=== PATIENT | male | born 1980 | race Hispanic/Latino ===

== ENCOUNTER 2019-10-09 20:11 | Inpatient (IN) | payer SELFPAY ==
[~2019-10-09] VITALS: Ht 188 cm; Wt 106.6 kg
[2019-10-09] MEDS ORDERED: TETANUS/DIPHTHERIA TOXOID [ADULT] 0.5 ML VIAL IM ONE (20:41)
[2019-10-09] MEDS ORDERED: CLINDAMYCIN 600 MG/D5% WATER 50 ML IV ONE (20:52)
[2019-10-09] MEDS ORDERED: KETOROLAC TROMETHAMINE 30MG/ML ONE (20:52)
[2019-10-09 21:10] LABS: BASOPHILS % (AUTO) 1.1 % (0.0-5.0); EOSINOPHILS % (AUTO) 2.8 % (0.0-8.0); HEMATOCRIT 44.6 % (42-54); LYMPHOCYTES % (AUTO) 25.2 % (21.0-51.0); MEAN CORPUSCULAR HGB CONC 33.5 g/dL (32.0-36.0); MEAN CORPUSCULAR VOLUME 86.7 fL (79-99); MONOCYTES % (AUTO) 7.6 % (3.0-13.0); NEUTROPHILS % (AUTO) 63.3 % (40.0-77.0); PLATELET COUNT (AUTO) 133 K/uL (130-400); RED BLOOD CELL COUNT(AUTO) 5.15 MIL/uL (4.50-6.20); RED CELL DISTRIBUTION WIDTH 12.9 % (11.0-15.5); WHITE BLOOD COUNT (AUTO) 8.4 K/uL (4.8-10.8)
[2019-10-09 21:21] LABS: INR 0.93 (0.85-1.15); PARTIAL THROMBOPLASTIN TIME 27.3 SEC (26.3-35.5); PROTHROMBIN TIME 9.8 SEC (9.6-11.6)
[2019-10-09 21:24] LABS: BILIRUBIN,TOTAL 0.4 mg/dL (0.2-1.0); TOTAL PROTEIN, SERUM 7.9 g/dL (6.0-8.3)
[2019-10-09] MEDS ORDERED: ONDANSETRON HCL 4 MG/2 ML VIAL ONE (21:57)
[2019-10-09] MEDS ORDERED: MORPHINE SULFATE 4 MG/1ML SYG ONE (21:57)
--- NOTE | 2019-10-09 22:35 | NUR ---
Admission note: Admitted to floor via wheelchair. AOX4. Amb indep. Placed in bed comfortably. VS checked and recorded. Assessment done. ( see CPOE flow chart for full assessment) Oriented to room and used of call light. Policies and procedures explained. Verbalized understanding. Plan of care initiated. Photo of the wound taken and attached to chart. Denies feeling of discomfort this time. No apparent distress noted. Monitored and Cared for.
--- NOTE | 2019-10-09 23:20 | NUR ---
Called Dr. Duarte for further order: 1. Ancef 1 gm IV q8h 2. Morphine 2 mg IV q1 hr prn for moderate pain 3. Tylenol #3 2 tabs q 4-6 hrs prn for moderate pain 4. Regular diet 5. NPO at 2am 6. I and D to Right middle finger at 12 noon fish processing supervisor Ms. PICKERING made aware.
[2019-10-09] MEDS ORDERED: ACETAMINOPHEN-CODEINE 300/30MG TAB PO PRN ×2 (23:30)
[2019-10-10] VITALS (28 sets, daily range): BP systolic 108–144; BP diastolic 55–90
[2019-10-10] MEDS: CEFAZOLIN SODIUM 1 GM VIAL IVP SCH ×3 (00:46→16:41)
[2019-10-10] MEDS: MORPHINE SULFATE 2 MG/ML 1ML SYG IVP PRN ×2 (07:07→12:28)
[2019-10-10] MEDS ORDERED: FLU VACC QS2019-20 36MOS UP/PF 60 MCG/0.5 ML ML IM ONE (09:00)
[2019-10-10] MEDS: FLU VACC QUAD 2019-20(6MOS UP) 60 MCG/0.5 ML VIAL IM SCH (10:00)
[2019-10-10] MEDS ORDERED: SUCCINYLCHOLINE 200MG/10ML SYR ONE (12:01)
[2019-10-10] MEDS ORDERED: LIDOCAINE PF 2% 5ML ABBOJECT ONE (12:01)
[2019-10-10] MEDS ORDERED: MIDAZOLAM HCL 1 MG/ML 2ML VIAL ONE (12:02)
[2019-10-10] MEDS ORDERED: PROPOFOL 10 MG/ML 20ML VIAL IV ONE ×2 (12:03→12:11)
[2019-10-10] MEDS ORDERED: ROCURONIUM 10MG/1ML SYR 10 MG/ML ML ONE (12:03)
[2019-10-10] MEDS ORDERED: FENTANYL CITRATE PF 50 MCG/1 ML 2ML VIAL ONE (12:04)
[2019-10-10] MEDS ORDERED: CEFAZOLIN SODIUM 1 GM VIAL IRRIG ONE (12:30)
[2019-10-10] MEDS ORDERED: MEPERIDINE-PF 25 MG/ML SYG ONE ×3 (12:50→13:01)
[2019-10-10] MEDS ORDERED: KETOROLAC TROMETHAMINE 30MG/ML ONE (12:52)
--- NOTE | 2019-10-10 16:28 | NUR ---
D/C PLAN CM spoke to pt regarding d/c planning. Pt is [place] and lives with spouse. Denies having any DME at home. States spouse can assist in care and also with dressing changes as needed. CM provided community resources packet. Plan to home. No needs verbalized or identified. CM to f/u. Addendum: 10/10/19 at 1629 by STEPHANIE JAMES CM Amended: Links added.
[2019-10-10] MEDS ORDERED: ONDANSETRON HCL 4 MG/2 ML VIAL IVP PRN (19:00)
--- NOTE | 2019-10-10 21:32 | NUR ---
HEARTBURN Called Dr. Duarte informing pt was complaining of heartburn. Informed also that pt is taking Zantac as needed for heartburn. Ordered to call pharmacy and follow their protocol. 2132: Talked to pharmacist ( Mr. Hazel) thru phone. As per protocol, Famotidine 20 mg po BID for heartburn. - carried out.
[2019-10-10] MEDS: FAMOTIDINE 20MG TAB 20 MG TAB PO SCH (21:56)
[2019-10-11] VITALS (28 sets, daily range): BP systolic 115–138; BP diastolic 52–95
[2019-10-11] MEDS: CEFAZOLIN SODIUM 1 GM VIAL IVP SCH ×5 (00:03→23:57)
[2019-10-11] MEDS: MORPHINE SULFATE 2 MG/ML 1ML SYG IVP PRN ×2 (00:09→06:13)
[2019-10-11] MEDS ORDERED: LACTATED RINGERS 1000ML 1,000 ML IV ONE (07:50)
[2019-10-11] MEDS ORDERED: PROPOFOL 10 MG/ML 20ML VIAL IV ONE ×2 (08:08→08:21)
[2019-10-11] MEDS ORDERED: MIDAZOLAM HCL 1 MG/ML 2ML VIAL ONE ×2 (08:08→08:15)
[2019-10-11] MEDS ORDERED: FENTANYL CITRATE PF 50 MCG/1 ML 2ML VIAL ONE (08:08)
[2019-10-11] MEDS ORDERED: LIDOCAINE PF 2% 5ML ABBOJECT ONE (08:08)
[2019-10-11] MEDS: FAMOTIDINE 20MG TAB 20 MG TAB PO SCH ×3 (09:00→21:33)
[2019-10-11] MEDS ORDERED: MEPERIDINE-PF 25 MG/ML SYG ONE (09:11)
[2019-10-11] MEDS: FLU VACC QUAD 2019-20(6MOS UP) 60 MCG/0.5 ML VIAL IM SCH (10:00)
[2019-10-11] MEDS ORDERED: ACETAMINOPHEN-CODEINE 300/30MG TAB PO PRN (11:45)
[2019-10-11] MEDS ORDERED: FLU VACC QS2019-20 36MOS UP/PF 60 MCG/0.5 ML ML IM ONE (15:12)
[2019-10-12 03:00] VITALS: BP 121/73
[2019-10-12 06:10] LABS: BASOPHILS % (AUTO) 0.7 % (0.0-5.0); EOSINOPHILS % (AUTO) 1.9 % (0.0-8.0); MEAN CORPUSCULAR HEMOGLOBIN 27.9 pg (27.0-33.0); MEAN CORPUSCULAR HGB CONC 32.3 g/dL (32.0-36.0); MEAN CORPUSCULAR VOLUME 86.2 fL (79-99); MONOCYTES % (AUTO) 7.6 % (3.0-13.0); NEUTROPHILS % (AUTO) 56.5 % (40.0-77.0); PLATELET COUNT (AUTO) 129 K/uL (130-400); RED BLOOD CELL COUNT(AUTO) 4.99 MIL/uL (4.50-6.20); WHITE BLOOD COUNT (AUTO) 7.5 K/uL (4.8-10.8)
[2019-10-12 06:19] LABS: CREATININE 1.1 mg/dL (0.5-1.5); CRP QUANTITATIVE 13.5 mg/L (0.00-9.0); POTASSIUM 4.2 mmol/L (3.5-5.1)
[2019-10-12 08:04] VITALS: BP 141/85
[2019-10-12] MEDS: FLU VACC QUAD 2019-20(6MOS UP) 60 MCG/0.5 ML VIAL IM SCH (09:50)
[2019-10-12] MEDS: CEFAZOLIN SODIUM 1 GM VIAL IVP SCH (09:53)
[2019-10-12] MEDS: FAMOTIDINE 20MG TAB 20 MG TAB PO SCH (09:53)
[2019-10-12 11:14] VITALS: BP 136/80
[2019-10-12] MEDS ORDERED: CEFD300C3 PO (11:39)
[2019-10-12] MEDS ORDERED: SULF1TAB42 PO (11:39)
== END 2019-10-12 13:15 | disposition home or self-care (01) | DRG 581 ==
LOC: EDH 20:11 → EDHIP 20:12 → 3BH 22:36
PROVIDERS: ADMIT Family Medicine; ATTEND Family Medicine
PROC: 3E0234Z Introduction of Serum, Toxoid and Vaccine into Muscle, Percutaneous Approach (ICD-10-PCS; 2019-10-09)
PROC: 0JCJ0ZZ Extirpation of Matter from Right Hand Subcutaneous Tissue and Fascia, Open Approach (ICD-10-PCS; 2019-10-10)
PROC: 0JBJ0ZZ Excision of Right Hand Subcutaneous Tissue and Fascia, Open Approach (ICD-10-PCS; 2019-10-10)
PROC: 0X9J0ZZ Drainage of Right Hand, Open Approach (ICD-10-PCS; 2019-10-10)
PROC: 3E02340 Introduction of Influenza Vaccine into Muscle, Percutaneous Approach (ICD-10-PCS; 2019-10-10)
PROC: 3E02340 Introduction of Influenza Vaccine into Muscle, Percutaneous Approach (ICD-10-PCS; 2019-10-11)
PROC: 0JBJ0ZZ Excision of Right Hand Subcutaneous Tissue and Fascia, Open Approach (ICD-10-PCS; principal; 2019-10-11 08:30)
DX: L02.511 Cutaneous abscess of right hand (principal); K21.9 Gastro-esophageal reflux disease without esophagitis; Z91.013 Allergy to seafood; Z23 Encounter for immunization
CPT/HCPCS: 36415; 73140; 80048; 80053; 82948; 85025; 85610; 85651; 85730; 86140; 87040; 87070; 87076; 87077; 87186; 87205; 90714; A4565; A4606; G0378; J0330; J0690; J1885; J2001; J2175; J2250; J2270; J2405; J2704; J3010; J3490; J7030; J7120; Q2035; Q2036

== ENCOUNTER 2022-02-25 10:43 | Emergency (ER) | payer OTHER ==
[~2022-02-25] VITALS: Ht 185.4 cm; Wt 102.1 kg
[~2022-02-25 10:43] MED LIST: CEFD300C3 PO; SULF1TAB42 PO
[2022-02-25 10:48] VITALS: BP 137/97
[2022-02-25] MEDS ORDERED: LACTATED RINGERS 1000ML 1,000 ML IV SCH (11:00)
[2022-02-25] MEDS ORDERED: ONDANSETRON 4MG INJ IVP SCH (11:00)
[2022-02-25] MEDS ORDERED: PANTOPRAZOLE 40 MG/VIAL IVP SCH (11:00)
[2022-02-25 11:14] LABS: CREATININE 1.1 mg/dL (0.5-1.5); POTASSIUM 3.5 mmol/L (3.5-5.1)
[2022-02-25 11:16] LABS: BASOPHILS % (AUTO) 0.4 % (0.0-5.0); EOSINOPHILS % (AUTO) 0.6 % (0.0-8.0); LYMPHOCYTES % (AUTO) 12.4 % (21.0-51.0); MEAN CORPUSCULAR HEMOGLOBIN 28.9 pg (27.0-33.0); MEAN CORPUSCULAR HGB CONC 33.5 g/dL (32.0-36.0); MEAN CORPUSCULAR VOLUME 86.5 fL (79-99); NEUTROPHILS % (AUTO) 81.2 % (40.0-77.0); PLATELET COUNT (AUTO) 142 K/uL (130-400); RED BLOOD CELL COUNT(AUTO) 5.32 MIL/uL (4.50-6.20); RED CELL DISTRIBUTION WIDTH 12.6 % (11.0-15.5); WHITE BLOOD COUNT (AUTO) 10.1 K/uL (4.8-10.8)
[2022-02-25 11:22] LABS: ALBUMIN 3.7 g/dL (3.5-5.0); BILIRUBIN,TOTAL 0.3 mg/dL (0.2-1.0); TOTAL PROTEIN, SERUM 7.4 g/dL (6.0-8.3)
[2022-02-25 11:47] LABS: AMPHET/METH SCREEN,URINE NEGATIVE (NEGATIVE); BARBITURATE SCREEN, URINE NEGATIVE (NEGATIVE); BENZODIAZEPINES SCREEN,URINE NEGATIVE (NEGATIVE); CANNABINOID SCREEN,URINE POSITIVE (NEGATIVE); COCAINE SCREEN,URINE NEGATIVE (NEGATIVE); OPIATE SCREEN,URINE NEGATIVE (NEGATIVE); PHENCYCLIDINE SCREEN,URINE NEGATIVE (NEGATIVE)
[2022-02-25] MEDS ORDERED: KETOROLAC 30MG VIAL (30MG/ML) IVP SCH (12:00)
[2022-02-25] MEDS ORDERED: KETOROLAC 30MG VIAL (30MG/ML) ONE (12:05)
[2022-02-25] MEDS ORDERED: PANT40TA55 PO (12:28)
== END 2022-02-25 13:36 | disposition home or self-care (01) ==
LOC: EDH 10:43
DX: K21.9 Gastro-esophageal reflux disease without esophagitis (principal); F12.10 Cannabis abuse, uncomplicated; Z79.1 Long term (current) use of non-steroidal anti-inflammatories (NSAID)
CPT/HCPCS: 36415; 80053; 80305; 82150; 82550; 83690; 84484; 85025; 93005; 96361; 96374; 96375; 99284; C9113; J1885; J2405; J7120